=== PATIENT | female | born 1980 | race African-American/Black ===

== ENCOUNTER 2017-07-26 23:28 | Emergency (ER) | payer MEDICARE ==
[~2017-07-26] VITALS: Ht 165.1 cm; Wt 45.5 kg
[2017-07-26 23:30] VITALS: BP 122/87; PULSE 58; RESP 16; TEMP 99.1; O2SAT 100
--- NOTE | 2017-07-27 00:37 | PD ---
HPI Chief Complaint: Chest Pain Time Seen by Provider: 00:30 Travel History International Travel<30 days: No Contact w/Intl Traveler<30days: No Traveled to known affect area: No History of Present Illness HPI 36-year-old female complains of chest pain. Patient states the pain started a week ago. Patient states the pain is sharp pain localized to left anterior chest wall area. Patient denies any pain radiation. Patient denies palpitation nausea or diaphoresis. Patient states the pain is worse with deep breathing. Patient denies any coughing congestion. Patient vomited today on the pain. Patient denies any history of CAD. Patient denies any injury to the chest wall. Patient denies any fever chills. On a scale of 1-10 the pain is a 10. PFSH Past Medical History Asthma: Yes Diminished Hearing: No GERD: Yes ?: Not Past Surgical History Abdominal Surgery: Yes (HERNIA REPAIR) Social History Alcohol Use: No Tobacco Use: Yes (BLACK AND MILDS) Substance Use: No Allergies-Medications (Allergen,Severity, Reaction): Coded Allergies: Penicillins (Verified Allergy, Intermediate, Swelling, 07/26/17) Reported Meds & Prescriptions Reported Meds & Active Scripts Active No Active Prescriptions or Reported Medications Review of Systems General / Constitutional: No: Fever Eyes: No: Visual changes HENT: No: Headaches Cardiovascular: Positive: Chest Pain or Discomfort Respiratory: No: Shortness of Breath Gastrointestinal: No: Abdominal Pain Genitourinary: No: Dysuria Musculoskeletal: No: Pain Skin: No Rash Neurologic: No: Weakness Psychiatric: No: Depression Endocrine: No: Polydipsia Hematologic/Lymphatic: No: Easy Bruising Physical Exam Narrative GENERAL: Well-nourished, well-developed patient. SKIN: Focused skin assessment warm/dry. HEAD: Normocephalic. EYES: No scleral icterus. No injection or drainage. NECK: Supple, trachea midline. No JVD or lymphadenopathy. CARDIOVASCULAR: Regular rate and rhythm without murmurs, gallops, or rubs. RESPIRATORY: Breath sounds equal bilaterally. No accessory muscle use. GASTROINTESTINAL: Abdomen soft, non-tender, nondistended. MUSCULOSKELETAL: No cyanosis, or edema. Patient has reproducible chest pain left anterior chest wall. No crepitus no deformity noted. Breath sounds equal bilaterally. BACK: Nontender without obvious deformity. No CVA tenderness. Neurologic exam normal. Data Data Last Documented VS Vital Signs Date Time Temp Pulse Resp B/P (MAP) Pulse Ox O2 Delivery O2 Flow Rate FiO2 07/26/17 23:30 99.1 58 16 122/87 (99) 100 Orders Orders Chest, Single Ap (07/27/17 00:34) MDM Medical Decision Making Medical Screen Exam Complete: Yes Emergency Medical Condition: Yes Interpretation(s) 12:36 AM. EKG shows sinus rhythm nonspecific ST-T wave change. Last Impressions Chest X-Ray 07/27/17 0034 Signed Impressions: Service Date/Time: Thursday, July 27, 2017 00:51 - CONCLUSION: 1. No acute cardiomegaly disease. Mino Murphy MD Differential Diagnosis Differential diagnosis including musculoskeletal, angina, KS, PE, pneumothorax. Narrative Course 36 year female with left anterior chest wall pain. Diagnosis Primary Impression: Atypical chest pain Patient Instructions: General Instructions Additional Instructions: Mobic as needed for pain. Follow-up with personal physician. Return if worse. Med/Other Pt SpecificInfo: Prescription(s) given Scripts Meloxicam (Mobic) 15 Mg Tab 15 MG PO DAILY for Pain, #20 TAB 0 Refills Prov: Serafin Regan MD 07/27/17 Disposition: 01 DISCHARGE HOME Condition: Stable Serafin Regan MD Jul 27, 2017 00:37
--- NOTE | 2017-07-27 00:57 | RADRPT ---
EXAM DATE/TIME: 07/27/2017 00:51 [facility] COMPARISON: No previous studies available for comparison. INDICATIONS : Chest pain. MEDICAL HISTORY : None. SURGICAL HISTORY : None. ENCOUNTER: Initial ACUITY: 1 day PAIN SCORE: 0/10 LOCATION: Bilateral chest FINDINGS: A single view of the chest demonstrates the lungs to be symmetrically aerated without evidence of mas s, infiltrate or effusion. The cardiomediastinal contours are unremarkable. Osseous structures are intact. CONCLUSION: 1. No acute cardiomegaly disease. Mino Murphy MD on July 27, 2017 at 0:55 Board Certified Radiologist. This report was verified electronically.
[2017-07-27] MEDS ORDERED: MOBI15TA PO (01:10)
[2017-07-27] MEDS ORDERED: IBUPROFEN 600 MG TAB PO ONE (01:30)
--- NOTE | 2017-07-27 13:43 | EKG ---
Date Performed: 07/26/2017 Time Performed: 23:57:07 PTAGE: 36 years EKG: Sinus rhythm WITH SINUS ARRHYTHMIA POSSIBLE LEFT ATRIAL ENLARGEMENT POSSIBLE RIGHT VENTRICULAR CONDUCTION DELAY B ORDERLINE ECG NO PREVIOUS TRACING DOCTOR: Satish Marquez Interpretating Date/Time 07/27/2017 13:39:20
== END 2017-07-27 01:31 | disposition home or self-care (01) ==
LOC: NEPC 23:28
DX: R07.89 Other chest pain (principal); K21.9 Gastro-esophageal reflux disease without esophagitis; J45.909 Unspecified asthma, uncomplicated; I49.8 Other specified cardiac arrhythmias; Z88.0 Allergy status to penicillin; Z72.0 Tobacco use
CPT/HCPCS: 71010; 93005; 99283

== ENCOUNTER 2018-05-10 19:08 | Emergency (ER) | payer MEDICARE ==
[~2018-05-10] VITALS: Ht 165.1 cm; Wt 42.5 kg
[~2018-05-10 19:08] MED LIST: MOBI15TA PO
[2018-05-10 19:16] VITALS: BP 160/89; PULSE 76; RESP 16; TEMP 98.6; O2SAT 100
[2018-05-10] MEDS ORDERED: SERO100T PO (20:58)
[2018-05-10] MEDS ORDERED: DEPA500T PO (20:58)
[2018-05-10] MEDS ORDERED: VENTAER INH (20:58)
[2018-05-10] MEDS ORDERED: ALBU0.63 NEB (20:58)
[2018-05-10] MEDS ORDERED: OMEP10CA PO (20:58)
--- NOTE | 2018-05-10 20:59 | PD ---
HPI Chief Complaint: Abdominal Pain Time Seen by Provider: 20:46 Travel History International Travel<30 days: No Contact w/Intl Traveler<30days: No Traveled to known affect area: No History of Present Illness HPI 37yo F with PMH of gastritis presents to the ED with c/o abdominal pain, nausea , vomiting, chills and tactile fever for 2 days. Said pain is periumbilical and both constant and intermittent. Moderate severity and nonradiating. Denies any chest pain, sob, dysuria, hematuria, vaginal discharge. Said she is on her menstrual period. Had endoscopy a year ago and was told she has gastritis. Took omeprazole yesterday with no relive of pain. PFSH Past Medical History Asthma: Yes Diminished Hearing: No GERD: Yes Respiratory: Yes (Asthma) ?: Not LMP: 05/08/18 Past Surgical History Abdominal Surgery: Yes (HERNIA REPAIR) Social History Alcohol Use: No Tobacco Use: Yes (BLACK AND MILDS) Substance Use: No Allergies-Medications (Allergen,Severity, Reaction): Coded Allergies: Penicillins (Verified Allergy, Intermediate, Swelling, 07/26/17) Reported Meds & Prescriptions Reported Meds & Active Scripts Active Zantac (Ranitidine HCl) 150 Mg Tab 150 Mg PO BID 10 Days Mobic (Meloxicam) 15 Mg Tab 15 Mg PO DAILY Reported Omeprazole 10 Mg Cap 10 Mg PO DAILY Ventolin Hfa 18 GM Inh (Albuterol Sulfate) 90 Mcg/Act Aer 2 Puff INH Q4-6H PRN Albuterol Neb (Albuterol Sulfate) 0.63 Mg/3 Ml Neb 0.63 Mg NEB Q4HR NEB PRN Seroquel (Quetiapine Fumarate) 100 Mg Tab 100 Mg PO HS Depakote DR (Divalproex Sodium) 500 Mg Tabdr 500 Mg PO HS Review of Systems Except as stated in HPI: all other systems reviewed are Neg Physical Exam Narrative GENERAL: 37yo F in mild distress. SKIN: Focused skin assessment warm/dry. HEAD: Atraumatic. Normocephalic. EYES: Pupils equal and round. No scleral icterus. No injection or drainage. ENT: No nasal bleeding or discharge. Mucous membranes pink and moist. NECK: Trachea midline. No JVD. CARDIOVASCULAR: Regular rate and rhythm. No murmur appreciated. RESPIRATORY: No accessory muscle use. Clear to auscultation. Breath sounds equal bilaterally. GASTROINTESTINAL: Abdomen soft, mild epigastric, periumbilical, RUQ ttp. No RLQ ttp. No rebound tenderness or guarding. MUSCULOSKELETAL: No obvious deformities. No clubbing. No cyanosis. No edema. NEUROLOGICAL: Awake and alert. No obvious cranial nerve deficits. Motor grossly within normal limits. Normal speech. PSYCHIATRIC: Appropriate mood and affect; insight and judgment normal. Data Data Last Documented VS Vital Signs Date Time Temp Pulse Resp B/P (MAP) Pulse Ox O2 Delivery O2 Flow Rate FiO2 05/10/18 19:16 98.6 76 16 160/89 (112) 100 Orders Orders Complete Blood Count With Diff (05/10/18 20:53) Comprehensive Metabolic Panel (05/10/18 20:53) Lipase (05/10/18 20:53) Urinalysis - C+S If Indicated (05/10/18 20:53) Pantoprazole Inj (Protonix Inj) (05/10/18 21:00) Al-Mag Hy-Si 40-40-4 Mg/Ml Liq (Mag-Al P (05/10/18 21:00) Lidocaine 2% Viscous (Xylocaine 2% Visco (05/10/18 21:00) Ed Urine Pregnancytest Poc (05/10/18 20:53) Ondansetron Odt (Zofran Odt) (05/10/18 21:00) Potassium Chloride (Kcl) (05/10/18 23:00) Labs Laboratory Tests Test 05/10/18 21:27 05/10/18 23:10 White Blood Count 9.2 TH/MM3 Red Blood Count 4.24 MIL/MM3 Hemoglobin 14.2 GM/DL Hematocrit 41.2 % Mean Corpuscular Volume 97.0 FL Mean Corpuscular Hemoglobin 33.4 PG Mean Corpuscular Hemoglobin Concent 34.5 % Red Cell Distribution Width 12.3 % Platelet Count 309 TH/MM3 Mean Platelet Volume 9.1 FL Neutrophils (%) (Auto) 40.1 % Lymphocytes (%) (Auto) 50.3 % Monocytes (%) (Auto) 7.6 % Eosinophils (%) (Auto) 1.3 % Basophils (%) (Auto) 0.7 % Neutrophils # (Auto) 3.7 TH/MM3 Lymphocytes # (Auto) 4.6 TH/MM3 Monocytes # (Auto) 0.7 TH/MM3 Eosinophils # (Auto) 0.1 TH/MM3 Basophils # (Auto) 0.1 TH/MM3 CBC Comment DIFF FINAL Differential Comment Blood Urea Nitrogen 15 MG/DL Creatinine 0.81 MG/DL Random Glucose 78 MG/DL Total Protein 8.7 GM/DL Albumin 4.6 GM/DL Calcium Level 9.5 MG/DL Alkaline Phosphatase 82 U/L Aspartate Amino Transf (AST/SGOT) 13 U/L Alanine Aminotransferase (ALT/SGPT) 14 U/L Total Bilirubin 0.6 MG/DL Sodium Level 137 MEQ/L Potassium Level 3.2 MEQ/L Chloride Level 102 MEQ/L Carbon Dioxide Level 25.3 MEQ/L Anion Gap 10 MEQ/L Estimat Glomerular Filtration Rate 97 ML/MIN Lipase 132 U/L Urine Color YELLOW Urine Turbidity HAZY Urine pH 5.0 Urine Specific [place] 1.032 Urine Protein 30 mg/dL Urine Glucose (UA) NEG mg/dL Urine Ketones TRACE mg/dL Urine Occult Blood NEG Urine Nitrite NEG Urine Bilirubin NEG Urine Urobilinogen 4.0 OR GREATER mg/dL Urine Leukocyte Esterase NEG Urine RBC 1 /hpf Urine WBC 2 /hpf Urine Squamous Epithelial Cells 4 /hpf Urine Mucus MANY /lpf Microscopic Urinalysis Comment CULT NOT INDICATED MDM Medical Decision Making Medical Screen Exam Complete: Yes Emergency Medical Condition: Yes Differential Diagnosis Gastritis vs. peptic ulcer disease vs. pancreatitis vs. cholecystitis Narrative Course 37yo F with abdominal pain and vomiting for 2 days. Pt only have sexual intercourse with women and said she is not . Labs reviewed, no leukocytosis. H/H normal. Mild hypokalemia at 3.2, replaced orally. LFTs unremarkable. Lipase normal. UA showed WBC 2. Culture not indicated. Pt given zofran, pantoprazole and GI cocktail. Pt reevaluated at bedside and feels much better. No longer nauseous and eating crackers and drinking. No longer has abdominal pain. Return precautions given. Diagnosis Primary Impression: Abdominal pain Qualified Codes: R10.13 - Epigastric pain Patient Instructions: General Instructions Departure Forms: Tests/Procedures Additional Instructions: Please follow up with your primary care physician in 2-3 days. Return to the ED if symptoms worsen. Med/Other Pt SpecificInfo: Prescription(s) given Scripts Ranitidine (Zantac) 150 Mg Tab 150 MG PO BID for Reduce Stomach Acid for 10 Days, #20 TAB 0 Refills Prov: Juani Grewal DO 05/10/18 Disposition: 01 DISCHARGE HOME Condition: Stable Juani Grewal DO May 10, 2018 20:59
[2018-05-10] MEDS ORDERED: ALUMINUM/MAGNESIUM/SIMETH 30 ML CUP PO ONE (21:00)
[2018-05-10] MEDS ORDERED: ONDANSETRON ODT 4 MG TAB PO ONE (21:00)
[2018-05-10] MEDS ORDERED: LIDOCAINE VISCOUS 2% SOLN 15 ML UDC PO ONE (21:00)
[2018-05-10] MEDS ORDERED: PANTOPRAZOLE SODIUM 40 MG VIAL IVP ONE (21:00)
[2018-05-10 21:49] LABS: AUTOMATED NEUTROPHIL # 3.7 TH/MM3 (1.8-7.7); BASOPHIL # 0.1 TH/MM3 (0-0.2); BASOPHIL % 0.7 % (0.0-2.0); EOSINOPHIL # 0.1 TH/MM3 (0-0.4); EOSINOPHIL % 1.3 % (0.0-4.0); HEMATOCRIT 41.2 % (35.0-46.0); HEMOGLOBIN 14.2 GM/DL (11.6-15.3); LYMPH % 50.3 % (9.0-44.0); LYMPHOCYTE # 4.6 TH/MM3 (1.0-4.8); MEAN CORPUSCULAR HEMOGLOBIN 33.4 PG (27.0-34.0); MEAN CORPUSCULAR HGB CONC 34.5 % (32.0-36.0); MEAN PLATELET VOLUME 9.1 FL (7.0-11.0); MONO % 7.6 % (0.0-8.0); MONOCYTE # 0.7 TH/MM3 (0-0.9); NEUT % 40.1 % (16.0-70.0); PLATELET COUNT 309 TH/MM3 (150-450); RED BLOOD COUNT 4.24 MIL/MM3 (4.00-5.30); RED CELL DISTRIBUTION WIDTH 12.3 % (11.6-17.2); WHITE BLOOD COUNT 9.2 TH/MM3 (4.0-11.0)
[2018-05-10 21:57] LABS: ALBUMIN 4.6 GM/DL (3.4-5.0); AST (GOT) 13 U/L (15-37); BICARBONATE 25.3 MEQ/L (21.0-32.0); BLOOD UREA NITROGEN 15 MG/DL (7-18); CALCIUM 9.5 MG/DL (8.5-10.1); CHLORIDE 102 MEQ/L (98-107); CREATININE 0.81 MG/DL (0.50-1.00); GLOMERULAR FILTRATION RATE 97 ML/MIN (>89); GLUCOSE,RANDOM 78 MG/DL (74-106); SODIUM (NA) 137 MEQ/L (136-145)
[2018-05-10 21:58] LABS: ALT (GPT) 14 U/L (10-53)
[2018-05-10 22:01] LABS: ALKALINE PHOSPHATASE 82 U/L (45-117); TOTAL BILIRUBIN ADULT 0.6 MG/DL (0.2-1.0); TOTAL PROTEIN 8.7 GM/DL (6.4-8.2)
[2018-05-10] MEDS ORDERED: POTASSIUM CHLORIDE 20 MEQ CONTROLLED RELEASE TAB PO ONE (23:00)
[2018-05-10] MEDS ORDERED: ZANT150T2 PO (23:34)
[2018-05-10 23:38] LABS: BILIRUBIN, URINE NEG (NEG); BLOOD, URINE NEG (NEG); GLUCOSE,URINE NEG (NEG); KETONE, URINE TRACE mg/dL (NEG); MUCUS URINE MANY /lpf (OCC); NITRITE,URINE NEG (NEG); SQUAMOUS EPITHELIAL CELL URINE 4 /hpf (0-5); URINE COLOR YELLOW (YELLW/STRAW); URINE LEUKOCYTE ESTERASE NEG (NEG)
== END 2018-05-11 00:20 | disposition home or self-care (01) ==
LOC: NEPD 19:08
DX: R10.13 Epigastric pain (principal); R11.2 Nausea with vomiting, unspecified; R50.9 Fever, unspecified; E87.6 Hypokalemia; J45.909 Unspecified asthma, uncomplicated; K21.9 Gastro-esophageal reflux disease without esophagitis; Z72.0 Tobacco use; Z79.899 Other long term (current) drug therapy
CPT/HCPCS: 80053; 81001; 83690; 84703; 85025; 96374; 99284; C9113